=== PATIENT | female | born 1955 | race Two or more races ===

== ENCOUNTER 2023-10-03 12:55 | Emergency (ER) | payer OTHER ==
[~2023-10-03] VITALS: Ht 152.4 cm; Wt 64.4 kg
[2023-10-03] MEDS ORDERED: TOPROL XL50 MG PO (13:18)
[2023-10-03] MEDS ORDERED: JANUVIA25 MG PO (13:19)
[2023-10-03] MEDS ORDERED: SIMVASTATIN5 MG (13:21)
[2023-10-03] MEDS ORDERED: FOLIC ACID20 MG (13:21)
[2023-10-03] MEDS ORDERED: MOUNJARO2.5 MG/0.5 SQ (13:22)
[2023-10-03 14:24] LABS: HEMATOCRIT 42.1 % (36.0-45.00); HEMOGLOBIN 13.7 g/dL (12.0-15.00); MEAN CELL VOLUME 76.2 fL (80.00-100.00); MEAN CORPUSCULAR HEMOGLOBIN 24.7 pg (27.00-32.0); MEAN CORPUSCULAR HGB CONC 32.5 g/dl (32.0-36.0); PLATELET COUNT 188 K/uL (150-450); RED BLOOD COUNT 5.52 M/uL (4.00-6.00); RED CELL DISTRIBUTION WIDTH 14.4 % (11.5-14.5)
[2023-10-03 14:53] LABS: ALBUMIN 3.8 gm/dL (3.4-5.0); BILIRUBIN TOTAL 0.51 mg/dL (0.3-1.2); BILIRUBIN,CONJUGATED 0.16 mg/dL (0.0-0.2); BILIRUBIN,UNCONJUGATED 0.35 mg/dL (0.0-0.6); CALCIUM 9.3 mg/dL (8.5-10.1); CREATININE SERUM 1.4 mg/dL (0.55-1.02); GFR 37.39; GLOBULINA 3.8 G/DL (2.4-3.5); POTASSIUM 4.21 mEq/L (3.5-5.1); TOTAL PROTEIN 7.6 gm/dL (6.4-8.2)
[2023-10-03] MEDS ORDERED: PEPCID AC20 MG PO (16:12)
[2023-10-03] MEDS ORDERED: ZOFRAN8 MG PO (16:12)
[2023-10-03] MEDS ORDERED: LEVSIN/SL0.125 MG SL (16:12)
== END 2023-10-03 16:23 | disposition home or self-care (01) ==
LOC: ER 12:56
PROVIDERS: General Practice
DX: K29.70 Gastritis, unspecified, without bleeding (principal)
CPT/HCPCS: 36415; 96365; 96366; 99282; J1885; J3490; J7030